=== PATIENT | female | born 1955 | race Caucasian/White ===

== ENCOUNTER 2018-08-21 22:07 | Emergency (ER) | payer OTHER ==
[2018-08-21] MEDS ORDERED: Aspirin 81 MG Tab.Chew ONE (22:20)
[2018-08-21] MEDS ORDERED: Aspirin 81 MG Tab.Chew PO ONE (22:22)
[2018-08-21] MEDS ORDERED: Tenecteplase 50 MG Kit IV ONE (22:24)
--- NOTE | 2018-08-21 22:28 | EDM.PDOC ---
ED HPI GENERAL MEDICAL PROBLEM - General Chief Complaint: Gastrointestinal Problem Stated Complaint: [facility] Time Seen by Provider: 08/21/18 22:16 Source of Information: Reports: Patient, EMS History Limitations: Reports: No Limitations - History of Present Illness INITIAL COMMENTS - FREE TEXT/NARRATIVE: 62-year-old female who resides in [facility], [place] of [place], presents to the ED after a syncopal event occurred at home. She states she was sitting in the easy chair watching TV at about 2100 hrs. when she started to feel very unwell by this she means dizzy lightheaded and like she was going to faint. She reported this feeling to her who was in the room and she was able to get down to the floor prior to losing consciousness for an estimated 1- 2 minutes of time according to the . Patient states when she awoke she had prompt onset of nausea and vomiting and lost her supper contents. She states she has central chest pressure discomfort which feels like bad heartburn which she gets. Rarely. He does not radiate through to her back into her neck shoulders or arms. Has never had any problems with her heart in the past. Has a history of hypertension controlled with metoprolol extended release 50 mg once daily and hydrochlorothiazide tablet daily. No family history of coronary disease. She has never been a smoker. She doesn't believe she has elevated cholesterol. She has a wet cloth across her eyes and forehead as she states she feels like she is "burning up". Paramedics did give her Zofran 4 mg IV en route to hospital. Onset: Today Onset Date: 08/21/18 Onset Time: 21:00 Duration: Minutes: Location: Reports: Chest (Central chest pressure heartburn /burning discomfort) Quality: Reports: Pressure, Other Severity: Moderate (Burning initially was a 6 down to 2.) Improves with: Reports: None Worsens with: Reports: None Context: Denies: Activity, Exercise, Lifting, Sick Contact, Trauma, Other Associated Symptoms: Reports: Chest Pain, Nausea/Vomiting (Vomited once.) Treatments GERIATRIC AIDE: Reports: Other (see below) (Antral chest pressure burning discomfort) Mid-Sternal Chest Pain Score (Numeric/FACES): 2 - Related Data Allergies Allergy/AdvReac Type Severity Reaction Status Date / Time amoxicillin Allergy Hives Verified 08/21/18 22:12 Home Meds: Home Meds Metoprolol Succinate [Toprol XL 50mg] 50 mg PO DAILY 08/21/18 [History] hydroCHLOROthiazide [Hydrochlorothiazide] 25 mg PO DAILY 08/21/18 [History] Past Medical History Cardiovascular History: Reports: Hypertension (Controlled with current medications) Social & Family History - Living Situation & Occupation Living situation: Reports: Occupation: Employed ED ROS GENERAL - Review of Systems Review Of Systems: See Below Constitutional: Reports: Weakness (Stent present.). Denies: Fever, Chills, Malaise, Fatigue, Weight Loss HEENT: Reports: Glasses Respiratory: Denies: Shortness of Breath, Wheezing, Pleuritic Chest Pain, Cough , Sputum, Hemoptysis Cardiovascular: Reports: Chest Pain, Blood Pressure Problem. Denies: Claudication (Chronic hypertension.), Dyspnea on Exertion, Edema, Lightheadedness, Orthopnea Endocrine: Reports: No Symptoms GI/Abdominal: Reports: Abdominal Pain (B gastric discomfort), Nausea (Mild) : Reports: No Symptoms Musculoskeletal: Reports: No Symptoms Skin: Reports: No Symptoms Neurological: Reports: No Symptoms Psychiatric: Reports: No Symptoms Hematologic/Lymphatic: Reports: No Symptoms Immunologic: Reports: No Symptoms ED EXAM, GENERAL - Physical Exam Exam: See Below Exam Limited By: No Limitations General Appearance: Alert, WD/WN, Mild Distress, Other (Feels cool and wet or diaphoretic.) Eye Exam: Bilateral Eye: Normal Inspection Throat/Mouth: Normal Inspection, Normal Lips, Normal Oropharynx Head: Atraumatic, Normocephalic Neck: Normal Inspection, Supple, Non-Tender, Full Range of Motion. No: Carotid Bruit, Lymphadenopathy (L), Lymphadenopathy (R) Respiratory/Chest: No Respiratory Distress, Lungs Clear, Normal Breath Sounds, No Accessory Muscle Use, Chest Non-Tender Cardiovascular: Normal Peripheral Pulses, Regular Rate, Rhythm, No Edema, No Gallop, No Murmur, No Rub Peripheral Pulses: 3+: Posterior Tibial (L), Posterior Tibial (R), Dorsalis Pedis (L), Dorsalis Pedis (R) GI/Abdominal: Normal Bowel Sounds, Soft, Non-Tender, No Organomegaly, Other (No surgical scars) Back Exam: Normal Inspection, Full Range of Motion Extremities: Normal Inspection, Normal Range of Motion, Non-Tender, No Pedal Edema Neurological: Alert, Oriented, CN II-XII Intact, Normal Cognition Psychiatric: Normal Affect, Normal Mood Skin Exam: Intact, Normal Color, No Rash, Diaphoretic EKG INTERPRETATION EKG Date: 08/21/18 Time: 22:15 Rhythm: Other (Frequent PACs.) Rate (Beats/Min): 65 [place]: Normal P-Wave: Present (With first-degree AV block.) QRS: Other (Nonspecific initial intraventricular conduction delay.) ST-T: Depressed (ST segment depressed with inverted T waves V1 to V3. Slight ST segment depression also noted in V4. There is slight ST segment elevation in V5 and V6 lead 1 and aVL and lead 2. T-wave inversion or scooping in leads 3 and aVF.) QT: Prolonged EKG Interpretation Comments: Evidence of acute posterior wall myocardial infarction. Lateral leads also appeared to be involved. ie. likely circumflex coronary artery occlusion Course - Vital Signs Last Recorded V/S: Last Vital Signs Temp 35.7 C 08/21/18 22:12 Pulse 69 08/21/18 22:12 Resp 16 08/21/18 22:12 BP 160/89 H 08/21/18 22:12 Pulse Ox 98 08/21/18 22:12 - Orders/Labs/Meds Orders: Active Orders 24 hr Category Date Time Status EKG Documentation Completion [RC] STAT Care 08/21/18 22:17 Active Chest 1V Frontal [CR] Stat Exams 08/21/18 22:17 Taken CBC W/O DIFF,HEMOGRAM [HEME] MOTH@0700 Lab 08/24/18 07:00 Ordered CBC W/O DIFF,HEMOGRAM [HEME] MOTH@0700 Lab 08/28/18 07:00 Ordered CBC W/O DIFF,HEMOGRAM [HEME] MOTH@0700 Lab 08/31/18 07:00 Ordered CBC W/O DIFF,HEMOGRAM [HEME] MOTH@0700 Lab 09/04/18 07:00 Ordered CBC W/O DIFF,HEMOGRAM [HEME] MOTH@0700 Lab 09/07/18 07:00 Ordered CBC W/O DIFF,HEMOGRAM [HEME] MOTH@0700 Lab 09/11/18 07:00 Ordered PRO B-TYPE NATRIUR PEPT,BNPPRO [CHEM] Stat Lab 08/21/18 22:35 Received Heparin Sodium/D5W [Heparin 25,000 Units in D5W 500 ML] Med 08/21/18 22:49 Active 25,000 units in 500 ml IV ONETIME Nitroglycerin/D5W [Nitroglycerin 25 MG/D5W 250 ML] Med 08/21/18 22:30 Active 25 mg in 250 ml IV ASDIRECTED Sodium Chloride 0.9% [Normal Saline] 1,000 ml Med 08/21/18 22:30 Active IV ASDIRECTED Medication Orders Nitroglycerin/Dextrose (Nitroglycerin 25 Mg/D5w 250 Ml) 25 mg in 250 mls @ 6 mls/hr IV ASDIRECTED JOCELYN Last Infusion: 08/21/18 23:00 Dose: 15 mcg/min, 9 mls/hr Admin: 08/21/18 22:28 Dose: 10 mcg/min, 6 mls/hr Sodium Chloride (Normal Saline) 1,000 mls @ 125 mls/hr IV ASDIRECTED JOCELYN Last Admin: 08/21/18 22:28 Dose: 125 mls/hr Heparin Sodium/Dextrose (Heparin 25,000 Units In D5w 500 Ml) 25,000 units in 500 mls @ 20 mls/hr IV ONETIME ONE Stop: 08/22/18 23:48 Last Admin: 08/21/18 23:00 Dose: 1,000 units/hr, 20 mls/hr Labs: Laboratory Tests 08/21/18 08/21/18 08/21/18 Range/Units 22:35 22:35 22:35 WBC 17.91 H (3.98-10.04) K/mm3 RBC 5.00 (3.98-5.22) M/mm3 Hgb 14.0 (11.2-15.7) gm/L Hct 43.2 (34.1-44.9) % MCV 86.4 (79.4-94.8) fl MCH 28.0 (25.6-32.2) pg MCHC 32.4 (32.2-35.5) g/dl RDW Std Deviation 44.0 (36.4-46.3) fL Plt Count 254 (182-369) K/mm3 MPV 9.5 (9.4-12.3) fl Neutrophils % (Manual) 84 H (40-60) % Band Neutrophils % 1 (0-10) % Lymphocytes % (Manual) 12 L (20-40) % Atypical Lymphs % 0 % Monocytes % (Manual) 3 (2-10) % Eosinophils % (Manual) 0 L (0.7-5.8) % Basophils % (Manual) 0 L (0.1-1.2) Toxic Granulation 1+ slight Platelet Estimate Adequate Plt Morphology Comment Normal RBC Morph Comment Normal PT 10.6 (9.5-12.1) SECONDS INR 0.97 APTT 23 L (24-31) SECONDS Sodium 139 (136-145) mEq/L Potassium 3.2 L (3.5-5.1) mEq/L Chloride 100 (98-107) mEq/L Carbon Dioxide 28 (21-32) mEq/L Anion Gap 14.2 (5-15) BUN 16 (7-18) mg/dL Creatinine 0.8 (0.55-1.02) mg/dL Est Cr Clr Drug Dosing TNP Estimated GFR (MDRD) > 60 (>60) mL/min BUN/Creatinine Ratio 20.0 H (14-18) Glucose 140 H (80-115) mg/dL Calcium 9.6 (8.5-10.1) mg/dL Magnesium (1.8-2.4) mg/dl Total Bilirubin 0.5 (0.2-1.0) mg/dL AST 24 (15-37) U/L ALT 42 (14-59) U/L Alkaline Phosphatase 141 H (46-116) U/L CK-MB (CK-2) < 0.5 (0-3.6) ng/ml Troponin I < 0.017 (0.00-0.056) ng/mL Total Protein 7.5 (6.4-8.2) g/dl Albumin 3.7 (3.4-5.0) g/dl Globulin 3.8 gm/dL Albumin/Globulin Ratio 1.0 (1-2) 08/21/18 Range/Units 22:35 WBC (3.98-10.04) K/mm3 RBC (3.98-5.22) M/mm3 Hgb (11.2-15.7) gm/L Hct (34.1-44.9) % MCV (79.4-94.8) fl MCH (25.6-32.2) pg MCHC (32.2-35.5) g/dl RDW Std Deviation (36.4-46.3) fL Plt Count (182-369) K/mm3 MPV (9.4-12.3) fl Neutrophils % (Manual) (40-60) % Band Neutrophils % (0-10) % Lymphocytes % (Manual) (20-40) % Atypical Lymphs % % Monocytes % (Manual) (2-10) % Eosinophils % (Manual) (0.7-5.8) % Basophils % (Manual) (0.1-1.2) Toxic Granulation Platelet Estimate Plt Morphology Comment RBC Morph Comment PT (9.5-12.1) SECONDS INR APTT (24-31) SECONDS Sodium (136-145) mEq/L Potassium (3.5-5.1) mEq/L Chloride (98-107) mEq/L Carbon Dioxide (21-32) mEq/L Anion Gap (5-15) BUN (7-18) mg/dL Creatinine (0.55-1.02) mg/dL Est Cr Clr Drug Dosing Estimated GFR (MDRD) (>60) mL/min BUN/Creatinine Ratio (14-18) Glucose (80-115) mg/dL Calcium (8.5-10.1) mg/dL Magnesium 2.1 (1.8-2.4) mg/dl Total Bilirubin (0.2-1.0) mg/dL AST (15-37) U/L ALT (14-59) U/L Alkaline Phosphatase (46-116) U/L CK-MB (CK-2) (0-3.6) ng/ml Troponin I (0.00-0.056) ng/mL Total Protein (6.4-8.2) g/dl Albumin (3.4-5.0) g/dl Globulin gm/dL Albumin/Globulin Ratio (1-2) Meds: Medications Generic Name Dose Route Start Last Admin Trade Name Freq PRN Reason Stop Dose Admin Nitroglycerin/Dextrose 25 mg in 250 mls @ 6 mls/hr 08/21/18 22:30 08/21/18 23 :00 Nitroglycerin 25 Mg/D5w 250 Ml IV 15 mcg/min ASDIRECTED JOCELYN 9 mls/hr Infusion 10 MCG/MIN Sodium Chloride 1,000 mls @ 125 mls/hr 08/21/18 22:30 08/21/18 22:28 Normal Saline IV 125 mls/hr ASDIRECTED JOCELYN Administration Heparin Sodium/Dextrose 25,000 units in 500 mls @ 20 mls/hr 08/21/18 22:49 23:00 Heparin 25,000 Units In D5w 500 Ml IV 08/22/18 23:48 1,000 units/hr ONETIME ONE 20 mls/hr Administration 1,000 UNITS/HR Discontinued Medications Generic Name Dose Route Start Last Admin Trade Name Freq PRN Reason Stop Dose Admin Aspirin 324 mg 08/21/18 22:22 08/21/18 22:27 Aspirin PO 08/21/18 22:23 324 mg ONETIME ONE Administration Aspirin Confirm 08/21/18 22:20 08/21/18 22:31 Aspirin Administered 08/21/18 22:21 Not Given Dose 324 mg .ROUTE .STK-MED ONE Fentanyl 50 mcg 08/21/18 22:56 08/21/18 23:04 Sublimaze IVPUSH 08/21/18 22:57 50 mcg ONETIME ONE Administration Heparin Sodium (Porcine) 4,500 units 08/21/18 22:45 08/21/18 22:57 Heparin Sodium IVPUSH 08/21/18 22:46 4,500 units ONETIME ONE Administration Heparin Sodium/Dextrose 25,000 units in 500 mls @ 20 mls/hr 08/22/18 10:00 Heparin 25,000 Units In D5w 500 Ml IV ACLUNCH JOCELYN 1,000 UNITS/HR Nitroglycerin/Dextrose 25 mg in 250 mls @ 9 mls/hr 08/21/18 23:00 Nitroglycerin 25 Mg/D5w 250 Ml IV ASDIRECTED JOCELYN 15 MCG/MIN Lorazepam 0.5 mg 08/21/18 23:14 08/21/18 23:17 Ativan IVPUSH 08/21/18 23:15 0.5 mg ONETIME ONE Administration Metoclopramide HCl 5 mg 08/21/18 23:07 08/21/18 23:10 Reglan IVPUSH 08/21/18 23:08 5 mg ONETIME ONE Administration Tenecteplase 35 mg 08/21/18 22:24 08/21/18 22:29 Tnkase IV 08/21/18 22:25 35 mg ONETIME ONE Administration Protocol - Radiology Interpretation Free Text/Narrative:: 62-year-old female presents to the ED per ambulance from [facility]. Patient states at about 2100 hrs. while she was seated in the easy chair watching TV with her she developed sudden onset of central chest burning discomfort which she described as more like heartburn. She then started to feel quite dizzy and lightheaded and reported this to her . She decided that she should lay down on the floor and she did make to the floor without falling. However apparently upon getting to the floor she lost consciousness for 1-2 minutes. Us is according to her . He then came around and promptly vomited up most of her supper contents. She continues to have central burning chest discomfort with no radiation and the ambulance was called. They subsequently brought her to [place] ECG done here suggest an acute posterior wall myocardial infarction. Patient has no contraindications to receiving thrombolytics. She was given 4 baby aspirins chewed. She was then given 35 mg of tenecteplase and she is 65 kg in weight. Nitro drip started at 10 mcg/m. Current blood pressure is 160/91. Initial ECG shows frequent PACs but no malignant arrhythmias. She is already on metoprolol. She does have a first- degree AV block. She consented to transfer to [facility] in [facility]. She will be heparinized after the chest neck to place has been given. She will receive 4500 unit bolus and then 1000 units an hour - Re-Assessments/Exams Free Text/Narrative Re-Assessment/Exam: 08/21/18 22:45: Spoke through the one call service at [facility] in [place] with --human service technician and has accepted care of this patient. She is to present to the ED. Plan will be to transport her by fixed wing aircraft as the [facility] airplane was only 20 minutes out of [place] when we called. The helicopters unable to fly at this time due to the weather. Patient's chest pain is reportedly getting a little bit worse on from a 2-3 or 4. Associated nausea. BP remains 140/87. Plan will be to increase her nitro drip to 15 mcg/m. Give fentanyl 50 g IV. Heart rate remained 68/m O2 sats 100% on 2 L. Labs are pending. Chest x-ray reveals mild hyperinflated lung pedraza that are clear. Cardiac silhouette is borderline cardiomegaly. 08/21/18 23:25 at time of discharge patient states the pain is pretty well gone. It had intensified a good deal before it went away. It suggests that connected places been successful in providing thrombolyzes. BP is 125/82 on nitroglycerin drip at 50 mcg/m. She has received Ativan 0.5 mg IV for relief of anxiety prior to discharge from the ED. 08/21/18 23:28 White count is markedly elevated at 17.91 presumably due to stress response. Differential is 84% neutrophils with 1% bands. Hemoglobin is 14.0 with hematocrit of 43.2. Plan a count is 254,000. PT is 10.6 with an INR of 0.97. PTT is 23. Sodium was 139 with potassium slightly low at 3.2. Chloride is 100 with a bicarbonate of 28. And a gap is 14.2. BUN is 16.. Creatinine is 0.8. GFR remains greater than 60. Glucose is 140. Calcium 9.6. Magnesium 2.1. Liver function normal alk phosphatase slightly elevated at 141. CK-MB fraction less than 0.5. Troponin I is less than 0.017. Total protein 7.5 with an albumin fraction of 3.7. Since the potassium is slightly low I will give her a K rider ( potassium chloride) of 10 mEq IV while en route to [place]. Departure - Departure Time of Disposition: 23:30 Disposition: DC/Tfer to Acute Hospital 02 Reason for Transfer *Q: Primary PCI Indicated Condition: Fair Clinical Impression: Acute myocardial infarction involving left circumflex coronary artery Qualifiers: Myocardial infarction type: unspecified Qualified Code(s): I21.21 - ST elevation (STEMI) myocardial infarction involving left circumflex coronary artery Forms: ED Department Discharge - My Orders Last 24 Hours: My Active Orders 08/21/18 22:17 EKG Documentation Completion [RC] STAT Chest 1V Frontal [CR] Stat 08/21/18 22:30 Nitroglycerin/D5W [Nitroglycerin 25 MG/D5W 250 ML] 25 mg in 250 ml IV ASDIRECTED Sodium Chloride 0.9% [Normal Saline] 1,000 ml IV ASDIRECTED 08/21/18 22:35 PRO B-TYPE NATRIUR PEPT,BNPPRO [CHEM] Stat 08/21/18 22:49 Heparin Sodium/D5W [Heparin 25,000 Units in D5W 500 ML] 25,000 units in 500 ml IV ONETIME 08/24/18 07:00 CBC W/O DIFF,HEMOGRAM [HEME] MOTH@69908/28/18 07:00 CBC W/O DIFF,HEMOGRAM [HEME] MOTH@69908/31/18 07:00 CBC W/O DIFF,HEMOGRAM [HEME] MOTH@69909/04/18 07:00 CBC W/O DIFF,HEMOGRAM [HEME] MOTH@69909/07/18 07:00 CBC W/O DIFF,HEMOGRAM [HEME] MOTH@69909/11/18 07:00 CBC W/O DIFF,HEMOGRAM [HEME] MOTH@07 - Assessment/Plan Last 24 Hours: My Active Orders 08/21/18 22:17 EKG Documentation Completion [RC] STAT Chest 1V Frontal [CR] Stat 08/21/18 22:30 Nitroglycerin/D5W [Nitroglycerin 25 MG/D5W 250 ML] 25 mg in 250 ml IV ASDIRECTED Sodium Chloride 0.9% [Normal Saline] 1,000 ml IV ASDIRECTED 08/21/18 22:35 PRO B-TYPE NATRIUR PEPT,BNPPRO [CHEM] Stat 08/21/18 22:49 Heparin Sodium/D5W [Heparin 25,000 Units in D5W 500 ML] 25,000 units in 500 ml IV ONETIME 08/24/18 07:00 CBC W/O DIFF,HEMOGRAM [HEME] MOTH@69908/28/18 07:00 CBC W/O DIFF,HEMOGRAM [HEME] MOTH@69908/31/18 07:00 CBC W/O DIFF,HEMOGRAM [HEME] MOTH@69909/04/18 07:00 CBC W/O DIFF,HEMOGRAM [HEME] MOTH@69909/07/18 07:00 CBC W/O DIFF,HEMOGRAM [HEME] MOTH@69909/11/18 07:00 CBC W/O DIFF,HEMOGRAM [HEME] MOTH@699
[2018-08-21] MEDS ORDERED: Sodium Chloride 0.9% 1,000 ML IV SCH (22:30)
[2018-08-21] MEDS ORDERED: Nitroglycerin/D5W 25 MG/250 ML BOTTLE IV SCH ×2 (22:30→23:00)
[2018-08-21] MEDS ORDERED: Heparin Sodium 5,000 Units/ML Vial IVPUSH ONE (22:45)
[2018-08-21] MEDS ORDERED: Heparin Sodium/D5W 25,000 UNITS/500 ML BAG IV ONE (22:49)
[2018-08-21] MEDS ORDERED: fentaNYL 100 MCG/2 ML SDV IVPUSH ONE (22:56)
[2018-08-21] MEDS ORDERED: Metoclopramide 10 MG/2 ML SDV IVPUSH ONE (23:07)
[2018-08-21] MEDS ORDERED: LORazepam 2 MG/ML SDV IVPUSH ONE (23:14)
[2018-08-21] MEDS ORDERED: Potassium Chloride 10 MEQ in Premix Bag 1 BAG IV ONE (23:29)
[2018-08-21] MEDS ORDERED: Potassium Chloride 100 ML ONE (23:29)
--- NOTE | 2018-08-22 07:23 | CR ---
Chest: Portable view of the chest was obtained. Comparison: No prior chest x-ray. Heart is slightly enlarged. Upper mediastinum is within normal limits. Lungs are clear with no acute parenchymal change. Bony structures are grossly intact. Impression: 1. Mild cardiomegaly. Nothing acute is otherwise seen on portable chest x-ray. Diagnostic code #2
[2018-08-22] MEDS ORDERED: Heparin Sodium/D5W 25,000 UNITS/500 ML BAG IV SCH (10:00)
== END 2018-08-21 23:34 ==
LOC: JD.ED 22:07
DX: I21.21 ST elevation (STEMI) myocardial infarction involving left circumflex coronary artery (principal); I10 Essential (primary) hypertension; Z79.899 Other long term (current) drug therapy
CPT/HCPCS: 36415; 71045; 80053; 82553; 83735; 83880; 84484; 85007; 85027; 85610; 85730; 93005; 96361; 96365; 96374; 96375; 96376; 99285; J1644; J2060; J2765; J3010; J3101; J3480; J3490; J7040; 93010; 99291; A9270-GY

== ENCOUNTER 2018-09-18 09:30 | Emergency (ER) | payer OTHER ==
[2018-09-18] MEDS ORDERED: Sodium Chloride 0.9% 500 ML IV ONE (09:51)
[2018-09-18] MEDS ORDERED: Sodium Chloride 0.9% 10 ML Syringe FLUSH PRN (09:51)
--- NOTE | 2018-09-18 11:37 | EDM.PDOC ---
ED HPI GENERAL MEDICAL PROBLEM - General Chief Complaint: Cardiovascular Problem Stated Complaint: FROM CARDIAC REHAB Time Seen by Provider: 09/18/18 09:41 Source of Information: Reports: Patient, RN Notes Reviewed - History of Present Illness INITIAL COMMENTS - FREE TEXT/NARRATIVE: 62-year-old lady was over at cardiac rehabilitation working on the arm machine when she began to feel weak, lightheaded and dizzy. He came nauseated, felt like she was about to pass out. Didn't help her down to the floor. Initially medical alert was called and then it was changed to CODE BLUE due to altered mental status of patient. Retrospectively the patient does not think she passed out completely but at this point debatable. Upon my arrival she had been hooked up to athletic monitor was extremely pale but awake with a pulse, heart rate around 40 on a athletic monitor. Atropine 0.5 mg IV had been ordered by Dr. Carter , hospitalist also present. Her heart rate began to order picker very quickly and she was then transported over here to the ED without further incident. Upon arrival to ED she is feeling better. We'll somewhat dizzy. Has pain or trouble breathing. The nausea has resolved. Did vomit once over at cardiac rehabilitation at the time of her near syncope and severe dizziness. She does have history of what is described as a "mild heart attack" about 1 month ago. She did have at least one stent placed. She has been doing well since that time. No chest pain this morning. Just the lightheadedness that progressed to severe dizziness and near syncope. 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: IV/IO, Other Medication(s) Other Treatments ESTATE PLANNING ATTORNEY: atropine - Related Data Allergies Allergy/AdvReac Type Severity Reaction Status Date / Time amoxicillin Allergy Hives Verified 09/11/18 09:06 Home Meds: Home Meds Metoprolol Succinate [Toprol XL 50mg] 50 mg PO DAILY 08/21/18 [History] Aspirin [Halfprin] 81 mg PO DAILY 09/01/18 [History] Nitroglycerin 0.4 mg SL ASDIRECTED PRN 09/01/18 [History] Potassium Chloride 20 meq PO DAILY 09/01/18 [History] Ticagrelor [Brilinta] 90 mg PO BID 09/01/18 [History] atorvaSTATin Calcium [Atorvastatin Calcium] 20 mg PO DAILY 09/01/18 [History] FLUoxetine HCl [Prozac] 20 mg PO DAILY 09/18/18 [History] Past Medical History Cardiovascular History: Reports: Hypertension, [place] [employer] History: Reports: Psychiatric History: Reports: Depression - Past Surgical History Cardiovascular Surgical History: Reports: Carotid Stents Dermatological Surgical History: Reports: Skin Biopsy Social & Family History - Tobacco Use Smoking Status *Q: Never Smoker - Caffeine Use Caffeine Use: Reports: Coffee - Recreational Drug Use Recreational Drug Use: No - Living Situation & Occupation Living situation: Reports: Occupation: Employed ED ROS GENERAL - Review of Systems Review Of Systems: See Below Constitutional: Reports: Diaphoresis (Now gone). Denies: Fever, Chills HEENT: Denies: Rhinitis, Sinus Problem, Throat Pain Respiratory: Reports: Shortness of Breath Cardiovascular: Reports: Lightheadedness (Severe). Denies: Chest Pain (Mild, gone) GI/Abdominal: Reports: Nausea, Vomiting (She did vomit once over at cardiac rehabilitation). Denies: Abdominal Pain : Reports: No Symptoms Musculoskeletal: Reports: No Symptoms, Other (She was helped down to the floor, no injury) Skin: Reports: Pallor, Diaphoresis (Now better) Neurological: Reports: Dizziness. Denies: Numbness (No much better after arrival to ED), Tingling ED EXAM, GENERAL - Physical Exam Exam: See Below General Appearance: Alert, No Apparent Distress (On arrival to ED) Eye Exam: Bilateral Eye: PERRL Throat/Mouth: Normal Inspection, Normal Oropharynx Head: Atraumatic Neck: Supple, Full Range of Motion Respiratory/Chest: No Respiratory Distress, Lungs Clear, Normal Breath Sounds Cardiovascular: Regular Rate, Rhythm GI/Abdominal: Soft, Non-Tender Extremities: Normal Inspection, Normal Range of Motion. No: Pedal Edema, Leg Pain Neurological: Alert, Oriented, No Motor/Sensory Deficits Skin Exam: Warm, Dry, Normal Color (At time of exam) EKG INTERPRETATION EKG Date: 09/18/18 Rhythm: NSR Rate (Beats/Min): 89 P-Wave: Present QRS: Normal ST-T: Depressed (Minimal ST depression lateral leads) QT: Normal Course - Vital Signs Last Recorded V/S: Last Vital Signs Temp 97.8 F 09/18/18 09:35 Pulse 91 09/18/18 09:35 Resp 16 09/18/18 09:35 BP 151/87 H 09/18/18 09:35 Pulse Ox 100 09/18/18 09:35 - Orders/Labs/Meds Orders: Active Orders 24 hr Category Date Time Status EKG 12 Lead [EKG Documentation Completion] [RC] STAT Care 09/18/18 09:50 Active Peripheral IV Care [RC] . DIRECTED Care 09/18/18 09:51 Active Peripheral IV Insertion Adult [OM.PC] Stat Oth 09/18/18 09:51 Ordered Labs: Laboratory Tests 09/18/18 09/18/18 09/18/18 Range/Units 08:22 09:42 09:42 WBC 7.42 (3.98-10.04) K/mm3 RBC 4.61 (3.98-5.22) M/mm3 Hgb 13.1 (11.2-15.7) gm/L Hct 40.7 (34.1-44.9) % MCV 88.3 (79.4-94.8) fl MCH 28.4 (25.6-32.2) pg MCHC 32.2 (32.2-35.5) g/dl RDW Std Deviation 46.1 (36.4-46.3) fL Plt Count 236 (182-369) K/mm3 MPV 9.7 (9.4-12.3) fl Neut % (Auto) 86.0 H (34.0-71.1) % Lymph % (Auto) 8.5 L (19.3-51.7) % [place] % (Auto) 4.7 (4.7-12.5) % Eos % (Auto) 0.3 L (0.7-5.8) Baso % (Auto) 0.1 (0.1-1.2) % Neut # (Auto) 6.38 H (1.56-6.13) K/mm3 Lymph # (Auto) 0.63 L (1.18-3.74) K/mm3 [place] # (Auto) 0.35 (0.24-0.36) K/mm3 Eos # (Auto) 0.02 L (0.04-0.36) K/mm3 Baso # (Auto) 0.01 (0.01-0.08) K/mm3 Manual Slide Review Abnormal smear Sodium 136 (136-145) mEq/L Potassium 3.8 (3.5-5.1) mEq/L Chloride 102 (98-107) mEq/L Carbon Dioxide 25 (21-32) mEq/L Anion Gap 12.8 (5-15) BUN 14 (7-18) mg/dL Creatinine 0.9 (0.55-1.02) mg/dL Est Cr Clr Drug Dosing TNP Estimated GFR (MDRD) > 60 (>60) mL/min BUN/Creatinine Ratio 15.6 (14-18) Glucose 137 H (80-115) mg/dL POC Glucose 114 (80-115) mg/dL Calcium 9.3 (8.5-10.1) mg/dL Total Bilirubin 0.4 (0.2-1.0) mg/dL AST 22 (15-37) U/L ALT 25 (14-59) U/L Alkaline Phosphatase 105 (46-116) U/L Troponin I < 0.017 (0.00-0.056) ng/mL Total Protein 7.3 (6.4-8.2) g/dl Albumin 3.5 (3.4-5.0) g/dl Globulin 3.8 gm/dL Albumin/Globulin Ratio 0.9 L (1-2) 09/18/18 Range/Units 11:50 WBC (3.98-10.04) K/mm3 RBC (3.98-5.22) M/mm3 Hgb (11.2-15.7) gm/L Hct (34.1-44.9) % MCV (79.4-94.8) fl MCH (25.6-32.2) pg MCHC (32.2-35.5) g/dl RDW Std Deviation (36.4-46.3) fL Plt Count (182-369) K/mm3 MPV (9.4-12.3) fl Neut % (Auto) (34.0-71.1) % Lymph % (Auto) (19.3-51.7) % [place] % (Auto) (4.7-12.5) % Eos % (Auto) (0.7-5.8) Baso % (Auto) (0.1-1.2) % Neut # (Auto) (1.56-6.13) K/mm3 Lymph # (Auto) (1.18-3.74) K/mm3 [place] # (Auto) (0.24-0.36) K/mm3 Eos # (Auto) (0.04-0.36) K/mm3 Baso # (Auto) (0.01-0.08) K/mm3 Manual Slide Review Sodium (136-145) mEq/L Potassium (3.5-5.1) mEq/L Chloride (98-107) mEq/L Carbon Dioxide (21-32) mEq/L Anion Gap (5-15) BUN (7-18) mg/dL Creatinine (0.55-1.02) mg/dL Est Cr Clr Drug Dosing Estimated GFR (MDRD) (>60) mL/min BUN/Creatinine Ratio (14-18) Glucose (80-115) mg/dL POC Glucose (80-115) mg/dL Calcium (8.5-10.1) mg/dL Total Bilirubin (0.2-1.0) mg/dL AST (15-37) U/L ALT (14-59) U/L Alkaline Phosphatase (46-116) U/L Troponin I < 0.017 (0.00-0.056) ng/mL Total Protein (6.4-8.2) g/dl Albumin (3.4-5.0) g/dl Globulin gm/dL Albumin/Globulin Ratio (1-2) Meds: Medications Discontinued Medications Generic Name Dose Route Start Last Admin Trade Name Freq PRN Reason Stop Dose Admin Sodium Chloride 500 mls @ 999 mls/hr 09/18/18 09:51 09/18/18 09:57 Normal Saline IV 09/18/18 10:21 999 mls/hr .BOLUS ONE Administration Sodium Chloride 10 ml 09/18/18 09:51 09/18/18 09:58 Saline Flush FLUSH 10 ml ASDIRECTED PRN Administration Keep Vein Open - Re-Assessments/Exams Free Text/Narrative Re-Assessment/Exam: 09/18/18 20:29 Initial troponin was negative, we did continue to observe her and obtain a second troponin which also did come back negative. She's been resting comfortably the whole time while here in the ED, sinus rhythm rate in the 70s and 80s, no ectopy. Other labs normal. Discharge instructions as documented. Departure - Departure Time of Disposition: 12:30 Disposition: Home, Self-Care 01 Condition: Fair Clinical Impression: Vasovagal near syncope Instructions: Near-Syncope, [id number] Referrals: Angela Steinberg MD [Primary Care Provider] - Forms: ED Department Discharge Additional Instructions: Rest, drink plenty of water to maintain hydration, continue current medications as prescribed, if further dizzy spells do occur be sure to get sure head down quickly as discussed to help keep symptoms from progressing and to help keep from passing out. Follow up with your regular medical provider as needed for further episodes of dizziness, return to ED as needed if symptoms worsening in any way. - My Orders Last 24 Hours: My Active Orders 09/18/18 09:50 EKG 12 Lead [EKG Documentation Completion] [RC] STAT 09/18/18 09:51 Peripheral IV Care [RC] . DIRECTED Peripheral IV Insertion Adult [OM.PC] Stat - Assessment/Plan Last 24 Hours: My Active Orders 09/18/18 09:50 EKG 12 Lead [EKG Documentation Completion] [RC] STAT 09/18/18 09:51 Peripheral IV Care [RC] . DIRECTED Peripheral IV Insertion Adult [OM.PC] Stat
== END 2018-09-18 12:52 | disposition home or self-care (01) ==
LOC: JD.ED 09:30
DX: R55 Syncope and collapse (principal); I10 Essential (primary) hypertension; I25.2 Old myocardial infarction; Z79.899 Other long term (current) drug therapy; Z88.1 Allergy status to other antibiotic agents
CPT/HCPCS: 36415; 80053; 82962; 84484; 85025; 93005; 96360; 96361; 99284; J7040; 93010